=== PATIENT | female | born 1975 | race Caucasian/White ===

== ENCOUNTER 2017-02-24 17:56 | Emergency (ER) | payer BC ==
[~2017-02-24] VITALS: Ht 175.3 cm; Wt 117.9 kg
--- NOTE | 2017-02-24 19:05 | Urgent Treatment Center Report ---
History of Present Issue Date/Time Seen by Provider 02/24/17 1856 Visit Reason Pt arrived:Walked Presenting Problem:PT C/O SINUS CONGESTION, BILATERAL EAR PAIN, AND DIZZINESS X1 WEEK Location if Accident: Onset of symptoms date/time:/ or onset unknown for:MEDICAL HX UNKNOWN Have you (or family members/close friends) recently traveled outside the [place]? N If Yes, where/when: Have you had exposure to infectious disease within the past month? TB? Other? Specify: c/o "I think I have a sinus infection". sudden onset one week ago of bilateral maxillary sinus congestion w/ antonio ear pain (left worse then right) and dizziness intermittently w/ movement. Denies symptoms beforehand. Subjective fever starting yesterday. Left ear pain worsening. Minimal improvement w/ flonase and claritin. Hasn't taken or tried anything else. No known sick contact. Denies change in hearing or ear drainage. Source patient Exam Limitations no limitations ALLERGIES Coded Allergies: No Known Allergies (02/24/17) Home Medications Reported Medications Gabapentin (Gabapentin 600MG) 600 MG PO TID Levothyroxine Sodium (Levothyroxine 0.112MG) 112 MCG PO DAILY CITALOPRAM HYDROBROMIDE (Citalopram HBr) 10 MG PO DAILY Pantoprazole Sodium (Protonix 40MG TAB) 40 MG PO BID Hydrochlorothiazide W/Triamter (Triamterene-Hctz 37.5-25 MG Tb) 1 TAB PO DAILY History Medical History General CAD? No Angina: No MO: No Hypertension? No Hyperlipidemia? No CHF? No DVT? No PE? No COPD? No Asthma? No Anemia? No GERD? No Gastric ulcers? No GI Bleed? No Hernia? No Thyroid Problems? No Hypothyroidism? No CVA? No Seizures? No Diabetes? No Renal Insuffiency? No UTI? No Stones? No BPH? No GB Disease: Yes Nephritic Syndrome? No Asplenia? No Hepatitis? No Sickle Cell Disease? No Arthritis? No Migraines? No Cataracts? No Glaucoma? No MRSA? No HIV? No TB? No Anxiety? No Depression? No Cancer? No More? No Immunization HX DT/Tetanus NOT SURE Surgical Hx Previous Surgery?Y PALMER Tonsils Gallbladd GASTRIC VOLVULOUS X 2 Social History Smoking Hx Smoker: Never Smoker Tobacco: No Packs/day < 1 Pack Alcohol Alcohol: No Review of Systems All Other Systems Reviewed and Negative Constitutional see HPI, denies malaise Eyes denies drainage ENT see HPI. denies: nose discharge, nose congestion, throat pain. Respiratory denies cough Gastrointestinal denies no symptoms reported Musculoskeletal denies other (no aches) Skin denies rash Psychiatric/Neurological headache (intermittent, "the sinus type"), denies weakness Physical Exam Vital Signs Vital Signs Date Time Temp Pulse Resp B/P Pulse O2 O2 Flow FiO2 Ox Delivery Rate 02/24 1818 97.9 93 18 159/96 96 General Appearance no apparent distress, obese Eye Exam - bilateral eye normal exam Ear, Nose, Throat antonio eacs normal, right TM intact but pink, left TM intact, bulging, red, normal nares, tenderness antonio maxillary sinuses, normal pharynx Neck non-tender, supple Respiratory Status No: respiratory distress, productive cough, non productive cough. Lung Sounds anterior: lungs clear. posterior: lungs clear. bilateral: lungs clear. Cardiovascular regular rate/rhythm, no peripheral edema, no murmur Neurologic alert, oriented x 3 Mental status normal mood/affect Skin normal color, warm/dry Lymphatic no adenopathy Medical Decision Making LABS/Meds/Orders Pt receiving controlled substance in ED? No Departure Departure Time of Disposition 1901 Disposition DC Home or Self Care(routine) Clinical Impression Primary Impression: Left otitis media Qualifiers: Otitis media type: unspecified Qualified Code: H66.92 - Otitis media, unspecified, left ear Secondary Impressions: Sinusitis Qualifiers: Sinusitis location: maxillary Chronicity: acute Recurrence: non- recurrent Qualified Code: J01.00 - Acute maxillary sinusitis, unspecified Condition STABLE Referrals Mihir Kaiser MD (Family) Immediately for new or worsening symptoms, no noticeable improvement in 48-72 hours AND in 10-14 days to ensure ears are back to baseline. Patient Instructions DI for Otitis Media (Middle Ear Infection)-Child, DI for Sinusitis Additional Instructions * Start antibiotic MIGUEL and be sure to take as ordered for the FULL length of time although you should start to feel better in 24-48 hours. * Monitor Temp. Tylenol every 4 hours as needed and/or ibuprofen every 6 hours as needed (as long as your primary care doctor has told you that it is ok to take both) for fever/aches/pain. ER if fever no less than 101 despite Tylenol and ibuprofen * Encourage fluids, water, Gatorade, PowerAde, pedialyte if /toddler/child * warm compress often helps when placed over ear * sleep elevated * Continue flonase and claritin. * Discuss sudafed w/ temporary help agency referral clerk before taking Discharge Counseling Counseled pt/family regarding diagnosis, medications/RX, home care, follow up needs Prescriptions Current Visit Scripts AMOXICILLIN (Amoxicillin 875MG Tab) 875 MG PO BID #20 TAB at 1906
[2017-02-24 19:09] VITALS: BP 159/96
--- OUTSIDE RECORDS SUMMARY | 2017-03-05 09:15 | External Medical Summary Rpt | CCD ---
Demographics Home Phone Preferred Language [place]an Marital Status Unknown Synagogue Affiliation Unknown Race Unknown Ethnic Group Unknown Author Author , JC GREENE Address Unknown Phone [email or web address] Support Name Relationship Address Phone AVINASH, Next Of Kin Unknown Unavailable TARA Immunization Name Date Rout CVX Reac Dose Comm Prov Is Faci e tion ent ider Refu lity Give sed n PCV1 05-1 Intr 133 999 Hist 1005 No 1005 3 7-20 amus oric 00 00 16 cula al r Info rmat ion - Sour ce Unsp ecif ied
--- OUTSIDE RECORDS SUMMARY | 2017-03-05 09:15 | External Medical Summary Rpt | CCD ---
Author Author JC Address Unknown Phone [email or web address] Purpose Continuity of Care Document - through 2016
--- OUTSIDE RECORDS SUMMARY | 2017-03-05 09:15 | External Medical Summary Rpt | CCD ---
Author Author , JC GREENE Address Unknown Phone Purpose Continuity of Care Document - 08-25-2013 through 2016
--- OUTSIDE RECORDS SUMMARY | 2017-03-05 09:15 | External Medical Summary Rpt | CCD ---
Author Author JC Address Unknown Phone [email or web address] Purpose Continuity of Care Document - through 2016
--- OUTSIDE RECORDS SUMMARY | 2017-03-05 09:15 | External Medical Summary Rpt | CCD ---
Demographics Home Phone Preferred Language Tuval[place] Marital Status Unknown Mormon Affiliation Unknown Race Unknown Ethnic Group Unknown Author Author , JC GREENE Address Unknown Phone [email or web address] Support Name Relationship Address Phone AVINASH, Next [...]
--- OUTSIDE RECORDS SUMMARY | 2017-03-05 09:16 | External Medical Summary Rpt ---
Author Author JC Christina, JC [employer]scout Organization [employer] Address Unknown Phone Unavailable Results HOLTER MONITOR RECORDING AND ANALYSIS Observa Value Referen Units Interpr Notes Date tion ce etation Range Scanned No No No No Dec 01 Holter informa informa informa informa 2016 tion in tion in tion in tion in 1:50 PM Report\ source source source source .br\St. data data data data [facility] Co\.br\ Interpr etive Stateme nts\.br \Marine Equipment Preservation Inspector Date: 12-02-19 17\.br\ Referri ng Physici an: DEL JOINER\.br \Patien t was monitor ed for 24 hours. Diary entries were absent\ .br\IND ICATION S: Coronar y artery disease involvi ng king salmon coronar y artery of\.br\ king salmon heart without angina pectori s,Parox ysmal atrial fibrill ation, Elevate d\.br\L FTs\.br \CONCLU RAMON:\. br\1. Normal study\. br\Elec tronica lly Signed On 12-10-19 7:33:18 EDT by Del joiner MD RIGHT UPPER QUADRANT Observa Value Referen Units Interpr Notes Date tion ce etation Range \.br\MN No No No No Dec 01 OCEDURE informa informa informa informa 2017 : RIGHT tion in tion in tion in tion in 1:05 PM UPPER source source source source QUADRAN data data data data T ULTRASO UND, 12/02/19 17 1:05 PM\.br\ \.br\IN DICATIO NS: Elevate d LFTs.\. br\\.br \FINDIN GS: Right upper quadran t ultraso und.\.b r\\.br\ The gallbla dder is surgica lly absent. \.br\\. br\Is diffuse steatos is. No focal hepatic lesions .. There is no intra or\.br\ extrahe patic biliary dilatat ion.\.b r\\.br\ The common duct measure s 4 mm.\.br \\.br\L imited views of the pancrea s are unremar kable. The right kidney shows no\.br\ hydrone phrosis .\.br\\ .br\IMP RESSION :\.br\P rior cholecy stectom y. Hepatic steatos is. Right upper quadran t\.br\u ltrasou nd is otherwi se unremar kable.\ .br\ Lipid Scr Observa Value Referen Units Interpr Notes Date tion ce etation Range Cholest 145 <=200 mg/dL No < 200 Nov 19 devi informa 2017 [Percen tion in 9:34 AM tile] source Desirab data le\.br\ 200 - 239 Borderl ine High\.b r\>= 240 High TRIGLYC 279 <=150 mg/dL High < 150 Nov 19 ERIDES. 2017 TOTAL Normal\ 9:34 AM .br\150 - 199 Borderl ine High\.b r\200 - 499 High\.b r\ >= 500 Very High CHOLEST 26 >=40 mg/dL Low > 60 Nov 19 EROLS.I 2017 N HDL Optimal 9:34 AM \.br\40 - 60 Accepta ble\.br \ < 40 Low LDL 63 <=100 mg/dL No < 100 Nov 19 Calcula informa 2017 snow tion in 9:34 AM source Optimal data \.br\10 0 - 129 Near or above optimal \.br\13 0 - 159 Borderl ine High\.b r\160 - 189 High\.b r\ >= 190 Very High UA Observa Value Referen Units Interpr Notes Date tion ce etation Range UA Yellow No No No No Nov 19 Color informa informa informa informa 2017 tion in tion in tion in tion in 8:56 AM source source source source data data data data UA Clear Clear No No No Nov 19 Appear informa informa informa 2017 tion in tion in tion in 8:56 AM source source source data data data UA Negativ Negativ No No No Nov 19 Glucose e e informa informa informa 2017 tion in tion in tion in 8:56 AM source source source data data data UA Negativ Negativ No No No Nov 19 Ketones e e informa informa informa 2017 tion in tion in tion in 8:56 AM source source source data data data UA Negativ Negativ No No No Nov 19 Blood e e informa informa informa 2017 tion in tion in tion in 8:56 AM source source source data data data UA pH 6.0 5.0 - No No Referen Nov 19 8.0 informa informa ce 2017 tion in tion in range 8:56 AM source source valid data data for random specime ns only. UA Negativ Negativ No No No Nov 19 Protein e e informa informa informa 2017 tion in tion in tion in 8:56 AM source source source data data data UA 0.2 <=1 No No No Nov 19 Urobili E.U./dL E.U./dL informa informa informa 2017 nogen tion in tion in tion in 8:56 AM source source source data data data UA Negativ Negativ No No No Nov 19 Nitrite e e informa informa informa 2017 tion in tion in tion in 8:56 AM source source source data data data UA Leuk Trace Negativ No Abnorma No Nov 19 Est e informa l informa 2017 tion in tion in 8:56 AM source source data data UA Spec 1.015 1.001 - No No Referen Nov 19 Grav 1.035 informa informa ce 2017 tion in tion in range 8:56 AM source source valid data data for random specime ns only. UA WBC 3-5 0 - 4 /HPF No No Nov 19 informa informa 2017 tion in tion in 8:56 AM source source data data UA 2+ No No No No Nov 19 Squam informa informa informa informa 2017 Epi tion in tion in tion in tion in 8:56 AM source source source source data data data data UA Trace No No No No Nov 19 Mucous informa informa informa informa 2017 tion in tion in tion in tion in 8:56 AM source source source source data data data data UA 2+ No No No No Nov 19 Bacteri informa informa informa informa 2017 a tion in tion in tion in tion in 8:56 AM source source source source data data data data CK Observa Value Referen Units Interpr Notes Date tion ce etation Range Creatin 150 26 - IU/L No No Nov 19 e 192 informa informa 2017 kinase tion in tion in 8:00 AM [Enzyma source source tic data data activit y/volum e] in Serum or Plasma Auto Diff Observa Value Referen Units Interpr Notes Date tion ce etation Range Neutrop 66.6 No % No No Nov 19 hils informa informa informa 2016 [#/volu tion in tion in tion in 7:35 AM me] in source source source Blood data data data by Automat ed count Lymphoc 23.8 No % No No Nov 19 ytes informa informa informa 2016 [#/volu tion in tion in tion in 7:35 AM me] in source source source Blood data data data by Automat ed count Monocyt 5.2 No % No Nov 19 es informa informa informa 2016 [#/volu tion in tion in tion in 7:35 AM me] in source source source Blood data data data by Automat ed count Eos 3.0 No % No No Nov 19 Percent informa informa informa 2017 tion in tion in tion in 7:35 AM source source source data data data Baso 1.4 No % No No Nov 19 Percent informa informa informa 2017 tion in tion in tion in 7:35 AM source source source data data data Neut# 5.9 1.8 - x10(3)/ No No Nov 19 7.7 mcL informa informa 2017 tion in tion in 7:35 AM source source data data Lymph# 2.1 0.6 - x10(3)/ No No Nov 19 4.8 mcL informa informa 2017 tion in tion in 7:35 AM source source data data Canadian# 0.5 0.0 - x10(3)/ No No Nov 19 1.3 mcL informa informa 2017 tion in tion in 7:35 AM source source data data Eos# 0.3 0.0 - x10(3)/ No No Nov 19 0.5 mcL informa informa 2017 tion in tion in 7:35 AM source source data data Baso# 0.1 0.0 - x10(3)/ No No Nov 19 0.2 mcL informa informa 2017 tion in tion in 7:35 AM source source data data CBC Observa Value Referen Units Interpr Notes Date tion ce etation Range LEUKOCY 8.9 4.0 - x10(3)/ No No Nov 19 NERIS 11.0 mcL informa informa 2017 tion in tion in 7:35 AM source source data data Erythro 4.77 3.80 - x10(6)/ No No Nov 19 cytes 5.10 mcL informa informa 2016 [#/volu tion in tion in 7:35 AM me] in source source Blood data data by Automat ed count Hemoglo 14.3 12.0 - gm/dL No Nov 19 bin 15.6 informa informa 2016 [Mass/v tion in tion in 7:35 AM olume] source source in data data Blood Hematoc 42.8 35.7 - % No No Nov 19 rit 45.9 informa informa 2016 [Volume tion in tion in 7:35 AM source source Fractio data data n] of Blood by Automat ed count Erythro 89.8 82.5 - fL No No Nov 19 cyte 99.8 informa informa 2016 mean tion in tion in 7:35 AM corpusc source source ular data data volume [Entiti c volume] by Automat ed count Erythro 30.0 27.0 - pg No No Nov 19 cyte 34.3 informa informa 2016 mean tion in tion in 7:35 AM corpusc source source ular data data hemoglo bin [Entiti c mass] by Automat ed count Erythro 33.4 32.1 - gm/dL No No Nov 19 cyte 35.3 informa informa 2017 mean tion in tion in 7:35 AM corpusc source source ular data data hemoglo bin concent ration [Mass/v olume] by Automat ed count Erythro 15.1 11.5 - % High No Nov 19 cyte 15.0 informa 2017 distrib tion in 7:35 AM ution source width data [Ratio] by Automat ed count Platele 193 144 - x10(3)/ No No Miki 28 ts 423 mcL informa informa 2017 [#/volu tion in ti in 7:35 AM me] in source source Blood data data by Automat ed count MPV 8.8 6.8 - fL No No Nov 19 10.8 informa informa 2016 tion in ti in 7:35 AM source source data data EK EKG 12 LEAD Observa Value Referen Units Interpr Notes Date ce etation Range Station No No No No Jun 13 bharat ECG informa informa informa informa 2016 tion in ti in tion in tion in 4:47 PM Study\. source source source source br\St. data data data data [facility] [employer] d\.br\I nterpre tive Stateme nts\.br \SINUS RHYTHM\ .br\Kateryna ctronic ally Signed On 06-14-19 17 0:06:47 EST by Solomon Conway MD XR CHEST PA AND LATERAL Observa Value Referen Units Interpr Notes Date ce etation Range \.br\XR No No No No Jun 13 CHEST informa informa informa informa 2016 PA AND tion in tion in tion in tion in 2:32 PM LATERAL source source source source data data data data 06/13/19 2:32 PM\.br\ HISTORY : -CHEST PAIN.\. br\\.br \Compar e: October 09, 2015\.b r\\.br\ \.br\He art size normal. Lungs free of infiltr ate. No pneumot horax.\ .br\\.b r\IMPRE SSION:\ .br\Imp ression : No acute finding s.\.br\ NT Pro-BNP Observa Value Referen Units Interpr Notes Date ce etation Range NT 16 <=174 pg/mL No An NT Jun 13 Pro-BNP informa pro-BNP 2016on in level 2:47 PM source less data than 300 pg/mL in any patient , regardl ess of age,\.b r\Effec tively rules out acute CHF with a 99% negativ e predict danielle value. PT Observa Value Referen Units Interpr Notes Date ce etation Range PT 11.9 10.1 - second( No No Jun 13 12.9 s) informa informa 2017 tion in tion in 2:29 PM source source data data INR in 1.03 0.88 - No No Level Jun 13 Platele 1.12 informa informa of 2017 t poor tion in tion in Therapy 2:29 PM plasma source source by data data Indicat Coagula ions tion Target assay INR Range\. br\\.br \Standa rd Dose Treatme nt and prophyl axis of venous 2.0 - 3.0\.br \ thrombo sis, pulmona ry embolis m\.br\\ .br\ High Dose High risk patient s with mechani pedro 2.5 - 3.5\.br \ heart valves Auto Diff Observa Value Referen Units Interpr Notes Date tion ce etation Range Neutrop 65.7 No % No No Jun 13 hils informa informa informa 2016 [#/volu tion in tion in tion in 2:24 PM me] in source source source Blood data data data by Automat ed count Lymphoc 25.7 No % No No Jun 13 ytes informa informa informa 2016 [#/volu tion in tion in tion in 2:24 PM me] in source source source Blood data data data by Automat ed count Monocyt 5.6 No % No No Jun 13 es informa informa informa 2016 [#/volu tion in tion in tion in 2:24 PM me] in source source source Blood data data data by Automat ed count Eos 2.1 No % No No Jun 13 Percent informa informa informa 2017 tion in tion in tion in 2:24 PM source source source data data data Baso 0.9 No % No No Jun 13 Percent informa informa informa 2017 tion in tion in tion in 2:24 PM source source source data data data Neut# 6.2 1.8 - x10(3)/ No No Jun 13 7.7 mcL informa informa 2017 tion in tion in 2:24 PM source source data data Lymph# 2.4 0.6 - x10(3)/ No No Jun 13 4.8 mcL informa informa 2017 tion in tion in 2:24 PM source source data data Canadian# 0.5 0.0 - x10(3)/ No No Jun 13 1.3 mcL informa informa 2017 tion in tion in 2:24 PM source source data data Eos# 0.2 0.0 - x10(3)/ No No Jun 13 0.5 mcL informa informa 2017 tion in tion in 2:24 PM source source data data Baso# 0.1 0.0 - x10(3)/ No No Jun 13 0.2 mcL informa informa 2017 tion in tion in 2:24 PM source source data data CBC Observa Value Referen Units Interpr Notes Date tion ce etation Range LEUKOCY 9.5 4.0 - x10(3)/ No No Jun 13 NERIS 11.0 mcL informa informa 2017 tion in tion in 2:24 PM source source data data Erythro 4.50 3.80 - x10(6)/ No No Jun 13 cytes 5.10 mcL informa informa 2016 [#/volu tion in tion in 2:24 PM me] in source source Blood data data by Automat ed count Hemoglo 14.3 12.0 - gm/dL No Jun 13 bin 15.6 informa informa 2016 [Mass/v tion in tion in 2:24 PM olume] source source in data data Blood Hematoc 43.1 35.7 - % No No Jun 13 rit 45.9 informa informa 2016 [Volume tion in tion in 2:24 PM source source Fractio data data n] of Blood by Automat ed count Erythro 95.8 82.5 - fL No No Jun 13 cyte 99.8 informa informa 2016 mean tion in tion in 2:24 PM corpusc source source ular data data volume [Entiti c volume] by Automat ed count Erythro 31.7 27.0 - pg No No Jun 13 cyte 34.3 informa informa 2016 mean tion in tion in 2:24 PM corpusc source source ular data data hemoglo bin [Entiti c mass] by Automat ed count Erythro 33.1 32.1 - gm/dL No No Jun 13 cyte 35.3 informa informa 2016 mean tion in tion in 2:24 PM corpusc source source ular data data hemoglo bin concent ration [Mass/v olume] by Automat ed count Erythro 14.5 11.5 - % No No Jun 13 cyte 15.0 informa informa 2016 distrib tion in tion in 2:24 PM ution source source width data data [Ratio] by Automat ed count Platele 200 144 - x10(3)/ No No Jun 13 ts 423 mcL informa informa 2016 [#/volu tion in tion in 2:24 PM me] in source source Blood data data by Automat ed count MPV 8.6 6.8 - fL No No Jun 13 10.8 informa informa 2016 tion in tion in 2:24 PM source source data data EK EKG 12 LEAD Observa Value Referen Units Interpr Notes Date ti ce etation Range Station No No No No Jun 13 bharat ECG informa informa informa informa 2017 tion in tion in tion in tion in 1:34 PM Study\. source source source source br\St. data data data data Elizabe [employer] d\.br\I nterpre tive Stateme nts\.br \SINUS RHYTHM\ .br\Kateryna ctronic ally Signed On 06-14-19 0:09:09 EST by Solomon Conway MD CT ABDOMEN PELVIS W CONTRAST Observa Value Referen Units Interpr Notes Date tion ce etation Range \.br\CT No No No No Mar 20 informa informa informa informa 2016 ABDOMEN tion in tion in tion in tion in 9:27 AM PELVIS source source source source W data data data data CONTRAS T 016 9:27 AM\.br\ \.br\HI STORY: R19.00- Intra-a bdomina l and pelvic swellin g, mass and lump,\. br\unsp ecified \.br\si te-ICD- 10-CM\. br\\.br \Compar celine: 4.\.br\ \.br\10 0 mL of Isovue- 370 adminis tered. Oral contras t was given. Automat ic\.br\ exposur e\.br\c ontrol was used for dose reducti on..\.b r\\.br\ There is diffuse severe fatty infiltr ation of the liver. Spleen is normal. \.br\Pr ior\.br \cholec ystecto my.\.br \Pancre as and adrenal glands and kidney show no abnorma lity.\. br\Opac ified bowel loops are normal. There is no free air or free fluid.\ .br\No pelvic mass or adenopa thy. Prior hystere ctomy.\ .br\Div erticul um arising from the left posteri or lateral margin of the bladder .\.br\D egenera tive disc disease L5-S1 with vacuum disc.\. br\\.br \IMPRES RAMON:\. br\Unre markabl e CT abdomen and pelvis. Marked fatty infiltr ation of the\.br \liver. Advance d degener ative disc disease L5-S1.\ .br\ BMP Observa Value Referen Units Interpr Notes Date tion ce etation Range Sodium 143 136 - mmol/L No No Nov 28 145 informa informa 2016 tion in tion in 11:36 source source AM data data Potassi 4.2 3.5 - mmol/L No No Nov 28 um 5.0 informa informa 2016 [Moles/ tion in tion in 11:36 volume] source source AM in data data Serum or Plasma Chlorid 104 98 - mmol/L No No Nov 28 e 107 informa informa 2016 tion in tion in 11:36 source source AM data data Carbon 26 22 - 29 mmol/L No No Nov 28 dioxide informa informa 2016 , total tion in tion in 11:36 source source AM [Moles/ data data volume] in Serum or Plasma Anion 13 7 - 16 mmol/L No No Nov 28 Gap informa informa 2016 tion in tion in 11:36 source source AM data data CALCIUM 9.6 8.6 - mg/dL No No Nov 28 .TOTAL 10.2 informa informa 2016 tion in tion in 11:36 source source AM data data Glucose 126 74 - mg/dL High No Nov 28 Lvl 100 informa 2016 tion in 11:36 source AM data BUN 14 6 - 20 mg/dL No No Nov 28 informa informa 2016 tion in tion in 11:36 source source AM data data Creatin 0.70 0.51 - mg/dL No No Nov 28 ine 1.30 informa informa 2016 tion in tion in 11:36 source source AM data data EC ECHOCARDIOGRAM COMPLETE W DOPPLER AND COLOR FLOW MAPPING Observa Value Referen Units Interpr Notes Date ce etation Range This No No No No Nov 11 patient informa informa informa informa 2016 tion in ti in in in 8:50 AM receive source source source source d an data data data data examina tion at the [facility] are Vascula r Laborat ory.\.b r\The complet e report can be found in the [facility] ([facility]) Electro jarod Medical Record of the patient . HOLTER MONITOR RECORDING AND INTERPRETATION Observa Value Referen Units Interpr Notes Date ce etation Range Scanned No No No No October 17 Holter informa informa informa informa 2015 in in in in 9:12 AM Report\ source source source source .br\St. data data data data [facility]\.br\ Interpr etive Stateme nts\.br \Marine Equipment Preservation Inspector Date:\. br\Refe rring Physici an:\.br \Patien t was monitor ed for 24 hours. Diary entries were not returne d.\.br\ INDICAT IONS:\. br\CONC LUSION: \.br\1. Rhythm is normal sinus.\ .br\2. Rare SVPB single. No pauses >2.5 seconds .\.br\3 . No VE.\.br \4. No patient markers used.\. br\5. No diary.\ .br\Kateryna ctronic ally Signed On 10-23-19 16 11:54:1 5 EDT by Del joiner MD NH US EVALUATE PSEUDOANEURYSM RIGHT Observa Value Referen Units Interpr Notes Date ce etation Range This No No No No October 10 patient informa informa informa informa 2015 in in in in 3:43 PM receive source source source source d an data data data data examina tion at the [facility] are Vascula r Laborat ory.\.b r\The complet e report can be found in the [facility] ([facility]) Electro jarod Medical Record of the patient . CARDIAC PROCEDURE Observa Value Referen Units Interpr Notes Date tion ce etation Range This is No No No No October 09 a informa informa informa informa 2015 summary tion in tion in tion in ti in 4:10 PM source source source source report. data data data data The complet e report is availab le in the patient 's medical record. If you cannot access the medical record, please contact the sending jake gomez for a detaile d fax or copy.\. br\\.br \Mild Diffuse three vessel CAD\.br \Patent stent in Mid LAD\.br \Normal LV filling pressur es.\.br \Low Normal LV functio n.\.br\ EK EKG 12 LEAD Observa Value Referen Units Interpr Notes Date ce etation Range Station No No No No October 09 bharat ECG informa informa informa informa 2015 tion in tion in tion in in 6:42 AM Study\. source source source source br\St. data data data data Elihansbe [facility] [employer] d\.br\I nterpre tive Stateme nts\.br \SINUS RHYTHM\ .br\Non specifi c T wave changes \.br\El ectroni jone Signed On 10-10-19 16 7:34:53 EDT by Werner Perea MD XR CHEST PA AND LATERAL Observa Value Referen Units Interpr Notes Date ce etation Range \.br\XR No No No No October 08 CHEST informa informa informa informa 2015 PA AND tion in tion in ti in tion in 3:03 PM LATERAL source source source source data data data data 10/09/19 16 3:03 PM\.br\ \.br\HI STORY: -CHEST PAIN.\. br\\.br \COMPAR E: September 18, 2015\.b r\\.br\ FINDING S:\.br\ \.br\Ca rdiac size normal and lungs clear\. br\\.br \IMPRES RAMON:\. br\\.br \No acute disease \.br\ Auto Diff Observa Value Referen Units Interpr Notes Date ce etation Range Neutrop 63.0 No % No No October 08 hils informa informa informa 2015 [#/volu tion in tion in ti in 2:19 PM me] in source source source Blood data data data by Automat ed count Lymphoc 26.1 No % No No October 08 ytes informa informa informa 2016 [#/volu tion in tion in tion in 2:19 PM me] in source source source Blood data data data by Automat ed count Monocyt 6.7 No % No No October 08 es informa informa informa 2016 [#/volu tion in tion in tion in 2:19 PM me] in source source source Blood data data data by Automat ed count Eos 2.9 No % No No October 08 Percent informa informa informa 2016 tion in tion in tion in 2:19 PM source source source data data data Baso 1.3 No % No No October 08 Percent informa informa informa 2016 tion in tion in tion in 2:19 PM source source source data data data Neut# 7.6 1.8 - x10(3)/ No No October 08 7.7 mcL informa informa 2016 tion in tion in 2:19 PM source source data data Lymph# 3.1 0.6 - x10(3)/ No No October 08 4.8 mcL informa informa 2016 tion in tion in 2:19 PM source source data data Canadian# 0.8 0.0 - x10(3)/ No No October 08 1.3 mcL informa informa 2016 tion in tion in 2:19 PM source source data data Eos# 0.3 0.0 - x10(3)/ No No October 08 0.5 mcL informa informa 2016 tion in tion in 2:19 PM source source data data Baso# 0.2 0.0 - x10(3)/ No No October 08 0.2 mcL informa informa 2016 tion in tion in 2:19 PM source source data data CBC Observa Value Referen Units Interpr Notes Date tion ce etation Range LEUKOCY 12.0 4.0 - x10(3)/ High No October 08 NERIS 11.0 mcL informa 2016 tion in 2:19 PM source data Erythro 4.82 3.80 - x10(6)/ No No October 08 cytes 5.10 mcL informa informa 2016 [#/volu tion in tion in 2:19 PM me] in source source Blood data data by Automat ed count Hemoglo 14.9 12.0 - gm/dL No No October 08 bin 15.6 informa informa 2016 [Mass/v tion in tion in 2:19 PM olume] source source in data data Blood Hematoc 44.1 35.7 - % No No October 08 rit 45.9 informa informa 2016 [Volume tion in tion in 2:19 PM source source Fractio data data n] of Blood by Automat ed count Erythro 91.4 82.5 - fL No No October 08 cyte 99.8 informa informa 2016 mean tion in tion in 2:19 PM corpusc source source ular data data volume [Entiti c volume] by Automat ed count Erythro 31.0 27.0 - pg No No October 08 cyte 34.3 informa informa 2016 mean tion in tion in 2:19 PM corpusc source source ular data data hemoglo bin [Entiti c mass] by Automat ed count Erythro 33.9 32.1 - gm/dL No No October 08 cyte 35.3 informa informa 2016 mean tion in tion in 2:19 PM corpusc source source ular data data hemoglo bin concent ration [Mass/v olume] by Automat ed count Erythro 14.0 11.5 - % No No October 08 cyte 15.0 informa informa 2016 distrib tion in tion in 2:19 PM ution source source width data data [Ratio] by Automat ed count Platele 247 144 - x10(3)/ No No October 08 ts 423 mcL informa informa 2016 [#/volu tion in tion in 2:19 PM me] in source source Blood data data by Automat ed count MPV 8.4 6.8 - fL No No October 08 10.8 informa informa 2016 tion in tion in 2:19 PM source source data data EK EKG 12 LEAD Observa Value Referen Units Interpr Notes Date tion ce etation Range Station No No No No October 08 bharat ECG informa informa informa informa 2016 tion in tion in tion in tion in 1:25 PM Study\. source source source source br\St. data data data data Elizabe th [employer] d\.br\I nterpre tive Stateme nts\.br \SINUS RHYTHM\ .br\Non specifi c T wave changes \.br\El ectroni jone Signed On 10-09-19 20:00:3 3 EDT by Werner Perea MD Auto Diff Observa Value Referen Units Interpr Notes Date tion ce etation Range Neutrop 62.5 No % No No Apr 28 hils informa informa informa 2016 [#/volu tion in tion in tion in 7:12 AM me] in source source source Blood data data data by Automat ed count Lymphoc 27.5 No % No No Apr 28 ytes informa informa informa 2016 [#/volu tion in tion in tion in 7:12 AM me] in source source source Blood data data data by Automat ed count Monocyt 5.6 No % No No Apr 28 es informa informa informa 2016 [#/volu tion in tion in tion in 7:12 AM me] in source source source Blood data data data by Automat ed count Eos 3.6 No % No No Apr 28 Percent informa informa informa 2016 tion in tion in tion in 7:12 AM source source source data data data Baso 0.8 No % No No Apr 28 Percent informa informa informa 2016 tion in tion in tion in 7:12 AM source source source data data data Neut# 6.2 1.8 - x10(3)/ No No Apr 28 7.7 mcL informa informa 2016 tion in tion in 7:12 AM source source data data Lymph# 2.8 0.6 - x10(3)/ No No Apr 28 4.8 mcL informa informa 2016 tion in tion in 7:12 AM source source data data Canadian# 0.6 0.0 - x10(3)/ No No Apr 28 1.3 mcL informa informa 2016 tion in tion in 7:12 AM source source data data Eos# 0.4 0.0 - x10(3)/ No No Apr 28 0.5 mcL informa informa 2016 tion in tion in 7:12 AM source source data data Baso# 0.1 0.0 - x10(3)/ No No Apr 28 0.2 mcL informa informa 2016 tion in tion in 7:12 AM source source data data CBC Observa Value Referen Units Interpr Notes Date tion ce etation Range LEUKOCY 10.0 4.0 - x10(3)/ No No Sep 19 NERIS 11.0 mcL informa informa 2016 tion in tion in 7:12 AM source source data data Erythro 4.66 3.80 - x10(6)/ No Sep 19 cytes 5.10 mcL informa informa 2016 [#/volu tion in tion in 7:12 AM me] in source source Blood data data by Automat ed count Hemoglo 14.5 12.0 - gm/dL No Sep 19 bin 15.6 informa informa 2015 [Mass/v tion in tion in 7:12 AM olume] source source in data data Blood Hematoc 43.2 35.7 - % No Sep 19 rit 45.9 informa informa 2016 [Volume tion in tion in 7:12 AM source source Fractio data data n] of Blood by Automat ed count Erythro 92.6 82.5 - fL No Sep 19 cyte 99.8 informa informa 2016 mean tion in tion in 7:12 AM corpusc source source ular data data volume [Entiti c volume] by Automat ed count Erythro 31.2 27.0 - pg No Sep 19 cyte 34.3 informa informa 2016 mean tion in tion in 7:12 AM corpusc source source ular data data hemoglo bin [Entiti c mass] by Automat ed count Erythro 33.7 32.1 - gm/dL No Sep 19 cyte 35.3 informa informa 2016 mean tion in tion in 7:12 AM corpusc source source ular data data hemoglo bin concent ration [Mass/v olume] by Automat ed count Erythro 13.9 11.5 - % No Sep 19 cyte 15.0 informa informa 2016 distrib tion in tion in 7:12 AM ution source source width data data [Ratio] by Automat ed count Platele 186 144 - x10(3)/ No No Sep 19 ts 423 mcL informa informa 2016 [#/volu tion in tion in 7:12 AM me] in source source Blood data data by Automat ed count MPV 8.6 6.8 - fL No No Sep 19 10.8 informa informa 2015 tion in tion in 7:12 AM source source data data EC ECHOCARDIOGRAM COMPLETE W DOPPLER AND COLOR FLOW MAPPING Observa Value Referen Units Interpr Notes Date tion ce etation Range This No No No No Sep 18 patient informa informa informa informa 2015 tion in tion in tion in tion in 8:13 AM receive source source source source d an data data data data examina tion at the [facility] are Vascula r Laborat ory.\.b r\The complet e report can be found in the [facility] ([facility]) [facility] Medical Record of the patient . TSH Observa Value Referen Units Interpr Notes Date tion ce etation Range Thyrotr 2.220 0.270 - mcIU/mL No No Sep 18 opin 4.200 informa informa 2015 [Units/ tion in tion in 9:45 AM volume] source source in data data Serum or Plasma Troponin-T Observa Value Referen Units Interpr Notes Date tion ce etation Range Troponi 1.38 <=0.00 ng/mL High \.br\Va Sep 18 n-T lues > 2016 or = 6:04 AM 0.01 ng/mL have been shown to have prognos tic value. Auto Diff Observa Value Referen Units Interpr Notes Date tion ce etation Range Neutrop 62.3 No % No No Sep 18 hils informa informa informa 2015 [#/volu tion in tion in tion in 5:39 AM me] in source source source Blood data data data by Automat ed count Lymphoc 28.6 No % No No Sep 18 ytes informa informa informa 2015 [#/volu tion in tion in tion in 5:39 AM me] in source source source Blood data data data by Automat ed count Monocyt 6.3 No % No No Sep 18 es informa informa informa 2015 [#/volu tion in tion in tion in 5:39 AM me] in source source source Blood data data data by Automat ed count Eos 2.0 No % No No Sep 18 Percent informa informa informa 2016 tion in tion in tion in 5:39 AM source source source data data data Baso 0.8 No % No No Sep 18 Percent informa informa informa 2016 tion in tion in tion in 5:39 AM source source source data data data Neut# 7.7 1.8 - x10(3)/ No No Sep 18 7.7 mcL informa informa 2016 tion in tion in 5:39 AM source source data data Lymph# 3.5 0.6 - x10(3)/ No No Sep 18 4.8 mcL informa informa 2016 tion in tion in 5:39 AM source source data data Canadian# 0.8 0.0 - x10(3)/ No No Sep 18 1.3 mcL informa informa 2016 tion in tion in 5:39 AM source source data data Eos# 0.2 0.0 - x10(3)/ No No Sep 18 0.5 mcL informa informa 2016 tion in tion in 5:39 AM source source data data Baso# 0.1 0.0 - x10(3)/ No No Sep 18 0.2 mcL informa informa 2016 tion in tion in 5:39 AM source source data data CBC Observa Value Referen Units Interpr Notes Date tion ce etation Range LEUKOCY 12.4 4.0 - x10(3)/ High No Sep 18 NERIS 11.0 mcL informa 2015 tion in 5:39 AM source data Erythro 4.92 3.80 - x10(6)/ No No Sep 18 cytes 5.10 mcL informa informa 2015 [#/volu tion in tion in 5:39 AM me] in source source Blood data data by Automat ed count Hemoglo 14.9 12.0 - gm/dL No No Sep 18 bin 15.6 informa informa 2016 [Mass/v tion in tion in 5:39 AM olume] source source in data data Blood Hematoc 45.7 35.7 - % No No Sep 18 rit 45.9 informa informa 2016 [Volume tion in tion in 5:39 AM source source Fractio data data n] of Blood by Automat ed count Erythro 92.9 82.5 - fL No No Sep 18 cyte 99.8 informa informa 2016 mean tion in tion in 5:39 AM corpusc source source ular data data volume [Entiti c volume] by Automat ed count Erythro 30.3 27.0 - pg No No Sep 18 cyte 34.3 informa inform2015 mean tion in tion in 5:39 AM corpusc source source ular data data hemoglo bin [Entiti c mass] by Automat ed count Erythro 32.6 32.1 - gm/dL No No Sep 18 cyte 35.3 informa inform2015 mean tion in tion in 5:39 AM corpusc source source ular data data hemoglo bin concent ration [Mass/v olume] by Automat ed count Erythro 14.1 11.5 - % No No Sep 18 cyte 15.0 informa inform2015 distrib tion in tion in 5:39 AM ution source source width data data [Ratio] by Automat ed count Platele 212 144 - x10(3)/ No No Sep 18 ts 423 mcL inform inform2015 [#/volu tion in tion in 5:39 AM me] in source source Blood data data by Automat ed count MPV 8.7 6.8 - fL No No Sep 18 10.8 informa inform2015 tion in tion in 5:39 AM source source data data Troponin-T Observa Value Referen Units Interpr Notes Date tion ce etation Range Troponi 2.24 <=0.00 ng/mL High \.br\Va Sep 17 n-T lues > 2016 or = 8:45 PM 0.01 ng/mL have been shown to have prognos tic value. XR CHEST AP PORTABLE Observa Value Referen Units Interpr Notes Date tion ce etation Range \.br\XR No No No No Sep 17 CHEST informa informa informa informa 2016 AP tion in tion in tion in tion in 6:40 PM PORTABL source source source source E data data data data 09/18/19 16 6:40 PM\.br\ \.br\CL INICAL: -CHEST PAIN\.b r\\.br\ COMPARI SON: 200 9\.br\\ .br\FIN DINGS: The cardiop ericard ial silhoue tte, mediast inum and vascula ture\.b r\are\. br\with in normal limits. The lungs are clear.\ .br\\.b r\IMPRE SSION: No acute disease .\.br\ Troponin-T Observa Value Referen Units Interpr Notes Date tion ce etation Range Troponi 0.47 <=0.00 ng/mL High \.br\Va Sep 17 n-T lues > 2016 or = 4:55 PM 0.01 ng/mL have been shown to have prognos tic value. EK EKG 12 LEAD Observa Value Referen Units Interpr Notes Date ti ce etation Range Station No No No No Sep 17 bharat ECG informa informa informa informa 2015 tion in tion in tion in tion in 3:48 PM Study\. source source source source br\St. data data data data Elizabe th [employer] d\.br\I nterpre tive Stateme nts\.br \ATRIAL FIBRILL ATION WITH RAPID VENTRIC ULAR RESPONS E, not present on prior\. br\trac ing\.br \MODERA TE INTRAVE NTRICUL AR CONDUCT ION DELAY\. br\MODE RATE ST DEPRESS ION\.br \Electr onicall y Signed On 09-18-19 16 18:17:2 6 EDT by Berenice Calvin MD CARDIAC PROCEDURE Observa Value Referen Units Interpr Notes Date ti ce etation Range CARDIAC No No No No Sep 17 informa informa informa informa 2015 CATHETE tion in in tion in tion in 3:25 PM RIZATIO source source source source N data data data data PROCEDU RE NOTE:\. br\\.br \Indica tions for procedu re:\.br \Sravanthi Grier is a 39 y.o. female with a history of chest pain and\.br \STEMI pattern on ECG.\.b r\\.br\ Procedu res Perform ed:\.br \1. Left Heart Cathete rizatio n\.br\2 . Selecti ve Coronar y Angiogr aphy\.b r\3. Left Ventric ulogram \.br\4. Radial Artery Access\ .br\5. Percuta neous Coronar y Interve ntion (PCI) of the left anterio r\.br\d escendi ng artery (LAD).\ .br\\.b r\Proce dure in Detail: \.br\Th e risks, benefit s and alterna tives were explain ed in detail to the\.br \patien t and informe d consent was granted . The patient was brought to the\.br \cardia c cath laborat ory suite and was prepped and draped in the usual\. br\ster ile fashion .\.br\\ .br\Con scious sedatio n was achieve d with IV versed and fentany l.\.br\ \.br\3 ml of 2% lidocai ne was used to provide local anesthe ray over the right\. br\wris t.\.br\ Using a modifie d Selding er techniq ue a 6 Fr radial artery sheath was\.br \introd uced into the right radial artery. 2.5 mg of verapam il was\.br \admini stered via the radial artery sheath to prevent vasospa sm. 50 ml/kg\. br\of heparin was adminis tered via the radial sheath for anticoa gulatio n.\.br\ \.br\Th e followi ng diagnos tic cathete rs were used:\. br\Left Main: 6 Fr XBLAD 3.5\.br \RCA: 5 Fr JR4\.br \LV: 5 Fr JR4\.br \\.br\S electiv e coronar y angiogr aphy of the coronar y arterie s was perform ed in\.br\ various project ions.\. br\\.br \A cathete r was introdu alvarado into the left ventric le and hemodyn amic\.b r\measu rements were made in the left ventric le.\.br \\.br\A left ventric ulogram was perform ed in the [facility] project ion using a power\. br\inje ctor.\. br\\.br \The cathete r was then pulled back across the aortic valve to assess for an\.br\ aortic valve pressur e gradien t.\.br\ \.br\Af ter the the diagnos tic angiogr am was complet ed the decisio n was made to\.br\ proceed with percuta neous coronar y interve ntion. Anticoa natasha n was\.br \achiev ed. The guide cathete r was advance d into proxima l coronar y artery. \.br\Th e interve ntional wire was then advance d across the lesion. \.br\Pr e-dilat ation of the lesion was achieve d using balloon angiopl asty. Next\.b r\the stent was place inside the lesion and deploye d. Follow up angiogr aphy\.b r\revea led 0% residua l stenosi s, NATI 3 flow and no evidenc e of dissect ion\.br \or perfora tion. See PCI report for further details .\.br\\ .br\Dur ing the case meticul ous sheath and cathete r care was perform ed with\.b r\frequ ent saline flushes .\.br\\ .br\Hem ostasis was achieve d using a radial artery hemosta tic band.\. br\\.br \The patient was transfe rred to the cardiac cardiac catheterization technician holding area in stable\ .br\con dition. \.br\\. br\Ther e were no complic ations noted during the procedu re.\.br \\.br\E stimate d blood loss was less than 5 to 10 ml.\.br \\.br\F indings :\.br\H emodyna mics:\. br\Left ventric ular pressur e (mmHg): 140/20\ .br\Aor tic pressur e (mmHg): 140/105 \.br\\. br\\.br \Select danielle Coronar y Angiogr aphy:\. br\Left Main Coronar y Artery (LMCA): Large mobile thrombu s seen in left main\.b r\on initial injecti on which mobiliz ed down the LAD.\.b r\\.br\ Left Anterio r Desceni ng Artery (LAD): Proxima l LAD has a dissect ion and\.br \large thrombu s with complet e occlusi on\.br\ \.br\Di agonals : normal\ .br\\.b r\Left Circumf lisbet Artery (LCx): luminal irregul arities \.br\\. br\Obtu se Margina ls (OM): luminal irregul arities \.br\\. br\Righ t Coronar y Artery (RCA): luminal irregul arities \.br\\. br\Righ t Posteri or Descend ing Artery (RPDA): normal\ .br\\.b r\Right Posteri or Lateral Ventric ulars (RPLV): normal\ .br\\.b r\\.br\ \.br\Le ft Ventric ulogram :\.br\T he left ventric ular ejectio n fractio n percent age was: 35%\.br \\.br\M itral regurgi tation: none\.b r\\.br\ Left ventric ular size: normal\ .br\Pro ximal aorta: normal\ .br\Seg mental left ventric ular systoli c functio n score:\ .br\(1: normal; 2: hypokin etic; 3: akineti c; 4: dyskine tic; 5: aneurys mal)\.b r\Anter obasal wall: 1\.br\A nterola teral wall: 3\.br\A pex: 3\.br\D iaphrag matic wall: 3\.br\I nferoba tyler wall: 1\.br\P ercutan eous Coronar y Interve ntion (PCI) Report: \.br\Pr ocedure Descrip tion:\. br\PCI Vessel: Proxima l LAD\.br \Antico agulati on: IV integre chio and IA heparin \.br\Pr e PCI stenosi s (%) : 100%\.b r\Post PCI stenosi s (%) : 0%\.br\ The followi ng equipme nt was used:\. br\Guid e cathete r: 6 Fr XBLAD 3.5\.br \Interv entiona l wire: BMW\.br \Balloo n: Trek 2.5 mm x 15 mm\.br\ Stent: Xience drug eluting stent - 3.0 mm x 28 mm\.br\ Final Impress ion:\.b r\1. Coronar y artery disease as describ ed above.\ .br\2. Plaque dissect ion and thrombo sis of the LAD\.br \3. Success ful PCI of the using a Xience drug eluting stent\. br\4. Left ventric ular filling pressur es are elevate d\.br\5 . Segment al left ventric ular dysfunc tion\.b r\Plan: \.br\1. Asa daily indefin itely\. br\2. Effient 10 mg daily Plavix 75 mg daily for a minimum of 12 months. \.br\3. Beta deneen , statin and ACEI. PT Observa Value Referen Units Interpr Notes Date tion ce etation Range PT 10.5 10.1 - second( No No Sep 17 12.9 s) informa informa 2015 tion in tion in 3:08 PM source source data data INR in 0.92 0.88 - No No Level Sep 17 Platele 1.12 informa informa of 2015 t poor tion in tion in Therapy 3:08 PM plasma source source by data data Indicat Coagula ions tion Target assay INR Range\. br\\.br \Standa rd Dose Treatme nt and prophyl axis of venous 2.0 - 3.0\.br \ thrombo sis, pulmona ry embolis m\.br\\ .br\ High Dose High risk patient s with mechani pedro 2.5 - 3.5\.br \ heart valves PTT Observa Value Referen Units Interpr Notes Date tion ce etation Range Activat 32.9 26.6 - second( No Therape Sep 17 ed 37.0 s) informa uti 2015 partial tion in range 3:08 PM source for thrombp data direct lastin thrombi time n (aPTT) inhibit in ors: Blood Argatro by ban is Coagula 1.5 to tion 3 times assay the aPTT baselin e. Lepirud in is 1.5 to 2 times the aPTT baselin e. The aPTT should not exceed 100 seconds .\.br\T he dosage of Argatro ban should be decreas ed in patient s with hepatic impairm ent. The dosage of Lepirud in should be decreas ed in renal insuffi ciency. \.br\\. br\The aPTT is no longer the appropr iate test to monitor unfract ionated heparin anticoa gulatio n. Auto Diff Observa Value Referen Units Interpr Notes Date tion ce etation Range Neutrop 61.0 No % No No Apr 26 hils informa informa informa 2015 [#/volu tion in tion in tion in 2:45 PM me] in source source source Blood data data data by Automat ed count Lymphoc 31.0 No % No No Apr ytes informa informa informa 2015 [#/volu tion in tion in tion in 2:45 PM me] in source source source Blood data data data by Automat ed count Monocyt 4.3 No % No No Apr es informa informa informa 2015 [#/volu tion in tion in tion in 2:45 PM me] in source source source Blood data data data by Automat ed count Eos 2.4 No % No No Apr 26 Percent informa informa informa 2016 tion in tion in tion in 2:45 PM source source source data data data Baso 1.3 No % No No Apr 26 Percent informa informa informa 2016 tion in tion in tion in 2:45 PM source source source data data data Neut# 9.6 1.8 - x10(3)/ High No Apr 26 7.7 mcL informa 2016 tion in 2:45 PM source data Lymph# 4.9 0.6 - x10(3)/ High No Apr 26 4.8 mcL informa 2016 tion in 2:45 PM source data Canadian# 0.7 0.0 - x10(3)/ No No Apr 26 1.3 mcL informa informa 2016 tion in tion in 2:45 PM source source data data Eos# 0.4 0.0 - x10(3)/ No No Apr 26 0.5 mcL informa informa 2016 tion in tion in 2:45 PM source source data data Baso# 0.2 0.0 - x10(3)/ No No Apr 26 0.2 mcL informa informa 2016 tion in tion in 2:45 PM source source data data CBC Observa Value Referen Units Interpr Notes Date tion ce etation Range LEUKOCY 15.8 4.0 - x10(3)/ High No Apr 26 NERIS 11.0 mcL informa 2016 tion in 2:45 PM source data Erythro 5.31 3.80 - x10(6)/ High No Sep 17 cytes 5.10 mcL informa 2015 [#/volu tion in 2:45 PM me] in source Blood data by Automat ed count Hemoglo 16.0 12.0 - gm/dL High No Sep 17 bin 15.6 informa 2015 [Mass/v tion in 2:45 PM olume] source in data Blood Hematoc 48.7 35.7 - % High No Sep 17 rit 45.9 informa 2016 [Volume tion in 2:45 PM source Fractio data n] of Blood by Automat ed count Erythro 91.8 82.5 - fL No Sep 17 cyte 99.8 informa informa 2016 mean tion in tion in 2:45 PM corpusc source source ular data data volume [Entiti c volume] by Automat ed count Erythro 30.2 27.0 - pg No Sep 17 cyte 34.3 informa informa 2015 mean tion in tion in 2:45 PM corpusc source source ular data data hemoglo bin [Entiti c mass] by Automat ed count Erythro 32.9 32.1 - gm/dL No Sep 17 cyte 35.3 informa informa 2016 mean tion in tion in 2:45 PM corpusc source source ular data data hemoglo bin concent ration [Mass/v olume] by Automat ed count Erythro 14.3 11.5 - % No Sep 17 cyte 15.0 informa informa 2016 distrib tion in tion in 2:45 PM ution source source width data data [Ratio] by Automat ed count Platele 302 144 - x10(3)/ No No Sep 17 ts 423 mcL informa informa 2016 [#/volu tion in tion in 2:45 PM me] in source source Blood data data by Automat ed count MPV 8.3 6.8 - fL No Sep 17 10.8 informa informa 2016 tion in tion in 2:45 PM source source data data EK EKG 12 LEAD Observa Value Referen Units Interpr Notes Date tion ce etation Range Station No No No No Apr 26 bharat ECG informa informa informa informa 2016 tion in tion in tion in tion in 2:25 PM Study\. source source source source br\St. data data data data Elimelissa th [employer] d\.br\I nterpre tive Stateme nts\.br \SINUS RHYTHM\ .br\LOW QRS VOLTAGE IN PRECORD IAL LEADS\. br\Diff use ST elevati on, especia lly in anterio r leads, possibl e ischemi a\.br\N o prior ECG availab le for compari son\.br \Electr onicall y Signed On 09-18-19 16 18:25:5 6 EDT by Berenice Calvin MD CT ABDOMEN PELVIS WO ORAL OR IV CONTRAST Observa Value Referen Units Interpr Notes Date tion ce etation Range CT No No No No Apr 3 ABDOMEN informa informa informa informa 2013 PELVIS tion in tion in tion in tion in 3:37 PM WO source source source source ORAL OR data data data data IV CONTRAS T Aug 25, 2013 03:38:0 8 PM\.br\ \.br\HI STORY: 599.70- Hematur ia, unspeci fied-IC D-9-CM. \.br\\. br\Neit her intrave nous nor oral contras t was given.. \.br\\. br\COMP [place]: Prior IVP 02/08/[address] 02/17/20 09\.br\ \.br\Th ere is a 7 mm calcifi cation in the lower pole the right kidney. Is\.br\ difficu lt to tell whether \.br\th is represe nts an intrare nal calculu s or parench ymal calcifi cation. It is\.br\ unchang ed from the\.br \prior study from 2008. No left-si ded calculi are present . There\. br\is no evidenc e of\.br\ uretera l obstruc tion. Visuali zed portion s of the liver and spleen are\.br \normal . Pancrea s is\.br\ unremar kable. No free air or free fluid is present . There's been a\.br\h ysterec delonte. Bladder is\.br\ empty.\ .br\\.b r\IMPRE SSION: Right renal calcifi cation likely parench ymal unchang ed from\.b r\prior exam. No evidenc e\.br\o f renal calculi and no evidenc e of uretera l obstruc tion.
--- OUTSIDE RECORDS SUMMARY | 2017-03-05 09:16 | External Medical Summary Rpt ---
Author Author JC Christina, [employer] Address Unknown Phone Unavailable Results HOLTER MONITOR RECORDING AND ANALYSIS Observa Value Referen Units Interpr Notes Date tion ce etation Range Scanned No No No No Dec 01 Holter informa informa informa informa 2016 tion in tion in tion in tion in 1:50 PM Report\ source source source source .br\St. data data data data Ruben [facility] Co\.br\ Interpr etive Stateme nts\.br \Machine Maintenance Repairer Date: 12-02-19 17\.br\ Referri ng Physici an: DEL JOINER\.br \Patien t was monitor ed for 24 hours. Diary entries were absent\ .br\IND ICATION S: Coronar y artery disease involvi ng [place] coronar y artery of\.br\ [place] heart without angina pectori s,Parox ysmal atrial fibrill ation, Elevate d\.br\L FTs\.br \CONCLU RAMON:\. br\1. Normal study\. br\Elec tronica lly Signed On 12-10-19 7:33:18 EDT by Del joiner MD RIGHT UPPER QUADRANT Observa Value Referen Units Interpr Notes Date tion ce etation Range \.br\CT No No No No Dec 01 OCEDURE [...] in 7:35 AM source source data data Richardson# 0.5 0.0 - x10(3)/ No No Nov [...] in 2:24 PM source source data data Richardson# 0.5 0.0 - x10(3)/ No No Jun [...] data data data examina tion at the [facility] are Vascula r Laborat ory.\.b r\The complet e report can be found in the [facility] ([facility]) [employer] Medical Record of the patient . HOLTER MONITOR RECORDING AND INTERPRETATION Observa Value Referen Units Interpr Notes Date ce etation Range Scanned No No No No October 17 Holter informa informa informa informa 2015 in in in in 9:12 AM Report\ source source source source .br\St. data data data data [facility] Co\.br\ Interpr etive Stateme nts\.br \Machine Maintenance Repairer Date:\. br\Refe rring Physici an:\.br \Patien t was monitor ed for 24 hours. Diary entries were not returne d.\.br\ INDICAT IONS:\. br\CONC LUSION: \.br\1. Rhythm is normal sinus.\ .br\2. Rare SVPB single. No pauses >2.5 seconds .\.br\3 . No VE.\.br \4. No patient markers used.\. br\5. No diary.\ .br\Kateryna ctronic ally Signed On 10-23-19 16 11:54:1 5 EDT by Del joiner MD WI US EVALUATE PSEUDOANEURYSM RIGHT Observa Value Referen Units Interpr Notes Date ce etation Range This No No No No October 10 patient informa informa informa informa 2015 in in in in 3:43 PM receive source source source source d an data data data data examina tion at the [facility] are Vascula r Laborat ory.\.b r\The complet e report can be found in the [facility] ([facility]) [facility] Medical Record of [...] in 2:19 PM source source data data Richardson# 0.8 0.0 - x10(3)/ No No October [...] in 7:12 AM source source data data Richardson# 0.6 0.0 - x10(3)/ No No Apr [...] data data data examina tion at the [facility] are Vascula r Laborat ory.\.b r\The complet e report can be found in the [facility] ([facility]) [facility] Medical Record of the patient . TSH [...] in 5:39 AM source source data data Richardson# 0.8 0.0 - x10(3)/ No No Sep [...] patient was transfe rred to the cardiac equipment operator/laborer/supervisor holding area in stable\ .br\con dition. \.br\\. [...] 2016 tion in 2:45 PM source data Richardson# 0.7 0.0 - x10(3)/ No No Apr [...]
== END 2017-02-24 19:09 | disposition home or self-care (01) ==
LOC: UTC 17:56
DX: J01.00 Acute maxillary sinusitis, unspecified (principal)